=== PATIENT | female | born 1995 | race Caucasian/White ===

== ENCOUNTER 2016-11-26 17:56 | Emergency (ER) | payer OTHER ==
[~2016-11-26] VITALS: Ht 160 cm; Wt 68.0 kg
[~2016-11-26 17:56] MED LIST: ACET50TA PO; IBUP80TA PO; NUPE1OIN2 TOP; PREN1TAB11 PO
[2016-11-26] MEDS ORDERED: NS 1,000 ML IV SCH (20:13)
[2016-11-26] MEDS ORDERED: ONDANSETRON 4MG/2ML VIAL (J2405) IV ONE (20:15)
[2016-11-26] MEDS ORDERED: MORPHINE 2 MG/ML 1ML SYRINGE IV PRN (20:15)
[2016-11-26 21:05] LABS: BASO % 0.2 % (0.0-1.0); EOS # 0.2 K/mm3 (0.0-0.50); EOS % 1.3 % (0.0-3.0); LARGE UNSTAINED CELL # 0.2 K/mm3 (0.0-0.4); LARGE UNSTAINED CELL % 1.8 % (0.0-4.0); LYMPH # 2.5 K/mm3 (1.5-6.5); LYMPH % 19.4 % (24.0-44.0); MEAN CORPUSCULAR HEMOGLOBIN 29.8 pg (27.0-33.0); MEAN CORPUSCULAR HGB CONC 33.8 g/dl (32.0-36.5); MEAN CORPUSCULAR VOLUME 88.3 fl (80.0-96.0); MONO # 0.6 K/mm3 (0.0-0.8); MONO % 4.7 % (0.0-5.0); NEUTROPHILS # 9.2 K/mm3 (1.8-7.7); NEUTROPHILS % 72.6 % (36.0-66.0); PLATELET COUNT, AUTOMATED 249 k/mm3 (150-450); RED CELL DISTRIBUTION WIDTH 12.8 % (11.5-14.5); WHITE BLOOD COUNT 12.7 K/mm3 (4.0-10.0)
[2016-11-26 21:10] LABS: INR 0.96
[2016-11-26 21:12] LABS: CONTROL LINE HCG INT CTR LINE PRESENT
[2016-11-26 21:26] LABS: ALBUMIN 3.9 GM/DL (3.2-5.2); ALBUMIN/GLOBULIN RATIO 1.11 (1.00-1.93); ALKALINE PHOSPHATASE 80 U/L (45-117); ALT/SGPT 18 U/L (12-78); ANION GAP 8 MEQ/L (8-16); AST/SGOT 11 U/L (15-37); BILIRUBIN,DIRECT 0.1 MG/DL (0.0-0.2); BILIRUBIN,TOTAL 0.6 MG/DL (0.2-1.0); BLOOD UREA NITROGEN 12 MG/DL (7-18); CALCIUM LEVEL 8.9 MG/DL (8.5-10.1); CARBON DIOXIDE LEVEL 28 MEQ/L (21-32); CHLORIDE LEVEL 104 MEQ/L (98-107); CREATININE FOR GFR 0.71 MG/DL (0.55-1.02); GLOMERULAR FILTRATION RATE > 60.0 (>60); GLUCOSE, FASTING 102 MG/DL (70-105); POTASSIUM SERUM 3.6 MEQ/L (3.5-5.1); SODIUM LEVEL 140 MEQ/L (136-145); TOTAL PROTEIN 7.4 GM/DL (6.4-8.2)
[2016-11-26] MEDS ORDERED: ISOVUE-370 76% 100ML VIAL (Q9967) As Ordered ONE (21:34)
[2016-11-26 22:02] VITALS: BP 139/68
--- NOTE | 2016-11-26 22:20 | REPUSA ---
CT of the abdomen and pelvis with contrast Clinical statement: Pain. Technique: Multiple axial CT images were obtained from the base of the lungs through the floor of the pelvis utilizing 5 mm axial slices after administration of nonionic intravenous contrast. Coronal an d sagittal reconstructions were also obtained. No comparison is available. Findings: Chest: The visualized lung bases are clear of infiltrates, but there is a 1.0 x 0.9 cm nodule in the left lower lobe. Abdomen: The liver, spleen, pancreas, kidneys, gallbladder, and adrenal glands are unremarkable. The aorta is within normal limits. There is no evidence of abdominal lymphadenopathy or ascites. Pelvis: The bowel is unremarkable, with no obstructive or inflammatory changes. The appendix is shalini l. The urinary bladder is within normal limits. There is a simple left ovarian cyst measuring 1.5 x 1 .2 cm. The other pelvic structures appear grossly intact. There is no evidence of pelvic lymphadenopa thy or ascites. Bones: There are no suspicious osseous abnormalities seen. Impression: 1. No obstructive or inflammatory bowel changes. The appendix is normal. 2. Simple left ovarian cyst. 3. 1 cm nodule in the left lower lobe. By Fleischner Society protocol recommendations, a follow-up CT in 3, 9, and 24 months is suggested. Dynamic contrast enhanced CT/PET scan or biopsy should also be considered.
[2016-11-26] MEDS ORDERED: ZOFR4TAB3 PO (22:36)
[2016-11-26] MEDS ORDERED: IBUP600T26 PO (22:36)
--- NOTE | 2016-11-27 13:07 | ED PDOC ---
Post-Departure Follow-Up radiology report faxed to [facility] Glo Stewart MD Nov 27, 2016 13:07
== END 2016-11-26 22:52 | disposition home or self-care (01) ==
LOC: M ED 19:42
DX: N83.202 Unspecified ovarian cyst, left side (principal); R91.1 Solitary pulmonary nodule; Z87.891 Personal history of nicotine dependence
CPT/HCPCS: 74177; 80048; 80076; 81001; 83690; 84703; 85025; 85610; 87086; 96374; 96375; 99283; J2405; Q9967

== ENCOUNTER 2017-04-14 21:29 | Emergency (ER) | payer OTHER ==
[~2017-04-14] VITALS: Ht 157.5 cm; Wt 74.1 kg
[~2017-04-14 21:29] MED LIST changes: +IBUP-1022 PO; +ZOFR4TAB3 PO
[2017-04-14 22:32] LABS: CONTROL LINE UCG INT CTR LINE PRESENT
[2017-04-14] MEDS ORDERED: ONDANSETRON 4 MG ORAL DISINTEGRATING TAB (S0181) PO ONE (23:45)
[2017-04-14] MEDS ORDERED: ACETAMINOPHEN TAB 650MG DOSE (2X325MG) PO ONE (23:45)
[2017-04-14] MEDS ORDERED: AMOXICILLIN 500 MG CAP PO ONE (23:45)
[2017-04-14] MEDS ORDERED: PYRI25TA3 PO (23:54)
[2017-04-14] MEDS ORDERED: NITETAB PO (23:54)
[2017-04-14] MEDS ORDERED: AMOX500C PO (23:54)
[2017-04-14 23:58] VITALS: BP 126/72
== END 2017-04-15 00:06 | disposition home or self-care (01) ==
LOC: M ED 21:29
DX: O98.511 Other viral diseases complicating pregnancy, first trimester (principal); O21.9 Vomiting of pregnancy, unspecified; Z3A.00 Weeks of gestation of pregnancy not specified

== ENCOUNTER 2017-06-16 06:59 | Emergency (ER) | payer OTHER ==
[~2017-06-16] VITALS: Ht 160 cm; Wt 78.6 kg
[~2017-06-16 06:59] MED LIST changes: +AMOX500C PO; +NITETAB PO; +PYRI25TA3 PO
[2017-06-16 07:03] VITALS: BP 125/76
[2017-06-16] MEDS ORDERED: TYLE325C PO (07:08)
[2017-06-16] MEDS ORDERED: PRENTAB55 PO (07:08)
[2017-06-16] MEDS ORDERED: ACETAMINOPHEN TAB 650MG DOSE (2X325MG) PO ONE (07:30)
== END 2017-06-16 07:49 | disposition home or self-care (01) ==
LOC: M ED 06:59
DX: O26.891 Other specified pregnancy related conditions, first trimester (principal); R51 Headache; Z3A.12 12 weeks gestation of pregnancy

== ENCOUNTER 2017-10-28 08:03 | Emergency (ER) | payer OTHER ==
[2017-10-28] MEDS: ALBUTEROL SULFATE 2.5 MG/0.5 ML INH NEB SOLN NEB (08:37)
[2017-10-28 08:41] LABS: INTERNAL CONTROL NO RESULT
[2017-10-28 09:39] LABS: INFLUENZA A AMPLIFICATION NEGATIVE (NEGATIVE); INFLUENZA B AMPLIFICATION NEGATIVE (NEGATIVE)
== END 2017-10-28 09:55 | disposition home or self-care (01) ==
LOC: M ED 08:03
DX: O99.513 Diseases of the respiratory system complicating pregnancy, third trimester (principal); J06.9 Acute upper respiratory infection, unspecified; J45.909 Unspecified asthma, uncomplicated; Z3A.31 31 weeks gestation of pregnancy
CPT/HCPCS: 94640

== ENCOUNTER 2017-11-11 21:35 | Outpatient (CLI) | payer OTHER ==
[2017-11-11] MEDS: FAMOTIDINE 20 MG TAB PO (22:52)
== END 2017-11-11 23:22 | disposition home or self-care (01) ==
LOC: M LDO 21:35
DX: O26.893 Other specified pregnancy related conditions, third trimester (principal); Z3A.33 33 weeks gestation of pregnancy; O99.613 Diseases of the digestive system complicating pregnancy, third trimester; K21.9 Gastro-esophageal reflux disease without esophagitis; O62.0 Primary inadequate contractions
CPT/HCPCS: 59025

== ENCOUNTER 2017-12-29 19:05 | Inpatient (IN) | payer OTHER ==
[2017-12-29] MEDS: LR 1,000 ML IV (21:05)
[2017-12-29] MEDS: LACTATED RINGER'S 1000 ML IV (21:05)
[2017-12-29] MEDS ORDERED: PENICILLIN G POTASSIUM 5 MU VIAL As Ordered (21:09)
[2017-12-29] MEDS: PENICILLIN G POTASSIUM IV 5 MU in D5W MINI-BAG PLUS 100 ML IV (21:13)
[2017-12-29 21:38] LABS: HEMATOCRIT 34.5 % (36.0-47.0); HEMOGLOBIN 11.9 g/dl (12.0-15.5); MEAN CORPUSCULAR HEMOGLOBIN 28.5 pg (27.0-33.0); MEAN CORPUSCULAR HGB CONC 34.5 g/dl (32.0-36.5); MEAN CORPUSCULAR VOLUME 82.5 fl (80.0-96.0); PLATELET COUNT, AUTOMATED 317 10^3/uL (150-450); RED BLOOD COUNT 4.18 10^6/uL (4.00-5.40); RED CELL DISTRIBUTION WIDTH 14.1 % (11.5-14.5); WHITE BLOOD COUNT 13.9 10^3/uL (4.0-10.0)
[2017-12-29] MEDS ORDERED: FENTANYL 2MCG/ML ROPIVACAINE 0.2% IN 0.9% NACL 200ML IVBAG As Ordered (21:45)
[2017-12-29] MEDS ORDERED: EPIDURAL COMMENT XX (22:15)
[2017-12-29] MEDS ORDERED: REFRIGERATOR IV KEYS XX (22:15)
[2017-12-29] MEDS ORDERED: LACTATED RINGER'S 1000 ML IV (22:15)
[2017-12-29] MEDS ORDERED: NALOXONE INJ 0.4 MG/1 ML VIAL (J2310) IV (22:15)
[2017-12-29] MEDS ORDERED: diphenhydrAMINE INJ 50MG/ML VIAL (J1200) IV (22:15)
[2017-12-29] MEDS ORDERED: EPIDURAL/PCA KEYS XX (22:15)
[2017-12-29] MEDS ORDERED: ONDANSETRON 4MG/2ML VIAL (J2405) IV (22:15)
[2017-12-29] MEDS ORDERED: ePHEDrine SULFATE 25 MG/5 ML(5MG/ML) SYRINGE IV (22:15)
[2017-12-30] MEDS ORDERED: OXYTOCIN 30 UNITS IN 0.9% NaCl 500ML IV BAG (J2590) As Ordered (01:08)
[2017-12-30] MEDS ORDERED: DIBUCAINE 1% OINTMENT 30GM TOP (02:15)
[2017-12-30] MEDS ORDERED: METOCLOPRAMIDE INJ 10MG/2ML VIAL (J2765) IV (02:15)
[2017-12-30] MEDS: IBUPROFEN 800 MG TAB PO ×3 (02:51→20:06)
[2017-12-30] MEDS: OXYTOCIN DRIP 30 UNITS in APPROPRIATE DILUENT 1 EA IV (03:26)
[2017-12-30] MEDS: PENICILLIN G POTASSIUM IV 2.5 MU in APPROPRIATE DILUENT 1 EA IV (07:05)
[2017-12-30] MEDS: FENTANYL/ROPIVACAINE/NACL BAG 200 ML EPIDURAL (07:05)
[2017-12-30] MEDS: DOCUSATE SODIUM 100 MG CAP PO ×2 (07:36→20:06)
[2017-12-30] MEDS: PRENATAL VITAMINS CHEWABLE TABLET PO (07:36)
[2017-12-30] MEDS: ACETAMINOPHEN TAB 650MG DOSE (2X325MG) PO ×4 (07:41→23:55)
[2017-12-30] MEDS: RHOGAM 300 MCG (1500 IU) INJ (J2790) IM (19:03)
[2017-12-30] MEDS: MEASLES,MUMPS,RUBELLA VACCINE INJ (MMR-II) (90707) SC (19:03)
[2017-12-31] MEDS: IBUPROFEN 800 MG TAB PO (05:07)
[2017-12-31 07:14] LABS: HEMATOCRIT 30.5 % (36.0-47.0); HEMOGLOBIN 10.2 g/dl (12.0-15.5); MEAN CORPUSCULAR HEMOGLOBIN 28.7 pg (27.0-33.0); MEAN CORPUSCULAR HGB CONC 33.4 g/dl (32.0-36.5); MEAN CORPUSCULAR VOLUME 85.7 fl (80.0-96.0); PLATELET COUNT, AUTOMATED 263 10^3/uL (150-450); RED BLOOD COUNT 3.56 10^6/uL (4.00-5.40); RED CELL DISTRIBUTION WIDTH 14.5 % (11.5-14.5); WHITE BLOOD COUNT 10.2 10^3/uL (4.0-10.0)
[2017-12-31] MEDS: PRENATAL VITAMINS CHEWABLE TABLET PO (08:50)
[2017-12-31] MEDS: DOCUSATE SODIUM 100 MG CAP PO (08:50)
== END 2017-12-31 13:00 | disposition home or self-care (01) | DRG 775 ==
LOC: M LDO 19:05 → M OBS 12-30 03:23 → M LDI 20:46
PROC: 10E0XZZ Delivery of Products of Conception, External Approach (ICD-10-PCS; principal; 2017-12-30)
PROC: 0HQ9XZZ Repair Perineum Skin, External Approach (ICD-10-PCS; 2017-12-30)
DX: O48.0 Post-term pregnancy (principal); Z37.0 Single live birth; Z3A.40 40 weeks gestation of pregnancy; O77.0 Labor and delivery complicated by meconium in amniotic fluid; O99.824 Streptococcus B carrier state complicating childbirth; O70.0 First degree perineal laceration during delivery